=== PATIENT | male | born 1975 | race Caucasian/White ===

== ENCOUNTER 2019-11-18 03:30 | Emergency (ER) | payer BC ==
[~2019-11-18] VITALS: Ht 175.3 cm; Wt 79.4 kg
--- NOTE | 2019-11-18 03:50 | NUR ---
Patient is 44yo male complaining of pain level 8/10 in his right foot. Patient is A&Ox3, vital signs are WNL( B/P=118/77 HR=94 SpO2 =99% Resp=18) No complaints of SOB or respritory distress. Patient is ambulatory, and is able to verbalize all needs. Bed locked and is in lowest position with 1/2 siderails up for safety. Will continue to monitor.
[2019-11-18] MEDS ORDERED: KETOROLAC TROMETHAMINE 60 MG INJ IM ONE ×2 (03:55→04:00)
[2019-11-18] MEDS ORDERED: HYDROCODONE/APAP 10-325 MG TABLET ONE (03:56)
[2019-11-18] MEDS ORDERED: HYDROCODONE/APAP 10-325 MG TABLET PO ONE (04:00)
[2019-11-18 04:40] VITALS: BP 110/74
--- NOTE | 2019-11-18 04:44 | NUR ---
Patient discharged to home in stable condition.Patient instructed not to drive while taking prescribed medications. Written and verbal after care instructions given. Patient verbalizes understanding of instructions. Stressed follow up or return to ER for worsening s/s.
== END 2019-11-18 04:47 | disposition home or self-care (01) ==
LOC: ER 03:35
DX: S93.601A Unspecified sprain of right foot, initial encounter (principal); W22.8XXA Striking against or struck by other objects, initial encounter; Y93.68 Activity, volleyball (beach) (court); Y92.34 Swimming pool (public) as the place of occurrence of the external cause
CPT/HCPCS: 73630; A4663; J1885

== ENCOUNTER 2024-04-06 19:35 | Emergency (ER) | payer SELFPAY | END 2024-04-06 20:00 | disposition left against medical advice (07) | LOC: ER 19:35 | DX: R10.9 Unspecified abdominal pain (principal); Z53.21 Procedure and treatment not carried out due to patient leaving prior to being seen by health care provider ==